=== PATIENT | female | born 1955 | race Caucasian/White ===

== ENCOUNTER 2024-02-18 14:20 | Outpatient (CLI) | payer OTHER | END 2024-02-18 20:26 | disposition home or self-care (01) | LOC: SCT 14:20 | PROVIDERS: ATTEND Orthopaedic Surgery | DX: M17.11 Unilateral primary osteoarthritis, right knee (principal) ==

== ENCOUNTER 2024-03-06 05:58 | Day surgery (SDC) | payer OTHER ==
[~2024-03-06] VITALS: Ht 162.6 cm; Wt 72.6 kg
[2024-03-06] MEDS ORDERED: ACETAMINOPHEN 500 MG TABLET ONE (06:15)
[2024-03-06] MEDS ORDERED: CEFAZOLIN SOD 2 GM in D5W 50 ML IV ONE (07:00)
[2024-03-06] MEDS ORDERED: VANCOMYCIN HCL 1,000 MG in NS 250 ML IV ONE (07:00)
[2024-03-06] MEDS: ACETAMINOPHEN 500 MG TABLET PO ONE (07:05)
[2024-03-06 07:14] VITALS: PULSE 89; RESP 16; TEMP 97.2; O2SAT 97
[2024-03-06] MEDS ORDERED: SEVOFLURANE 15 MIN GAS INH ONE (07:44)
[2024-03-06] MEDS ORDERED: ONDANSETRON HCL 4 MG/2 ML VIAL ONE (07:44)
[2024-03-06] MEDS ORDERED: DEXAMETHASONE SOD PHOSPHATE 10 MG/ML VIAL ONE (07:44)
[2024-03-06] MEDS ORDERED: EPINEPHrine HCL 1 MG/ML VIAL ONE (07:44)
[2024-03-06] MEDS ORDERED: TRANEXAMIC ACID 1,000 MG/10 ML VIAL ONE (07:44)
[2024-03-06] MEDS ORDERED: VANCOMYCIN HCL 1000 MG/VIAL IV ONE (07:44)
[2024-03-06] MEDS ORDERED: BUPIVACAINE /PF 0.25% 10 ML VIAL INJ ONE (07:44)
[2024-03-06] MEDS ORDERED: KETOROLAC TROMETHAMINE 30 MG VIAL ONE (07:44)
[2024-03-06] MEDS ORDERED: NS IRRIG SOLN 1000 ML IR ONE (07:44)
[2024-03-06] MEDS ORDERED: MIDAZOLAM HCL 2 MG/2 ML VIAL (VERSED) ONE (07:44)
[2024-03-06] MEDS ORDERED: LR 1,000 ML IV.SOLN IV ONE (07:44)
[2024-03-06] MEDS ORDERED: METOCLOPRAMIDE HCL 10 MG/2 ML VIAL IVP PRN ×2 (08:45→11:30)
[2024-03-06] MEDS ORDERED: LR 1,000 ML IV SCH (08:45)
[2024-03-06] MEDS ORDERED: ONDANSETRON HCL 4 MG/2 ML VIAL IVP PRN ×2 (08:45→11:45)
[2024-03-06] MEDS ORDERED: ACETAMINOPHEN I.V. 1000 MG 100 ML IV ONE (08:45)
[2024-03-06] MEDS ORDERED: HYDROmorphone 1 MG/ML INJ. CARTRIDGE IVP PRN ×3 (11:00)
[2024-03-06] MEDS ORDERED: traMADol HCL HCL 50 MG TABLET (ULTRAM) PO PRN (11:00)
[2024-03-06] MEDS ORDERED: LORATADINE 10 MG TABLET PO PRN (11:00)
[2024-03-06] MEDS ORDERED: oxyCODONE HCL 5 MG TABLET PO PRN ×2 (11:00)
[2024-03-06] MEDS ORDERED: DIPHENHYDRAMINE HCL 25 MG CAPSULE PO PRN (11:30)
[2024-03-06] MEDS ORDERED: LACTULOSE 20 GM/30 ML UDC PO PRN (11:30)
[2024-03-06] MEDS ORDERED: CLINDAMYCIN 900 MG in D5W 100 ML IV SCH (11:30)
[2024-03-06] MEDS ORDERED: BISACODYL 10 MG/SUPPOSITORY RC PRN (11:30)
[2024-03-06 11:49] VITALS: BP_SYST 137
[2024-03-06] MEDS ORDERED: HYDROmorphone 1 MG/ML INJ. CARTRIDGE ONE (12:08)
[2024-03-06] MEDS: HYDROmorphone 1 MG/ML INJ. CARTRIDGE IVP PRN (12:08)
[2024-03-06] MEDS: TAMSULOSIN HCL 0.4 MG CAP PO ONE (12:44)
[2024-03-06] MEDS ORDERED: TAMSULOSIN HCL 0.4 MG CAP ONE (12:46)
[2024-03-06] MEDS ORDERED: ACETAMINOPHEN 500 MG TABLET PO SCH (14:00)
[2024-03-06] MEDS: CLINDAMYCIN 900 mg/50mL D5W 50 ML IV SCH (15:10)
[2024-03-06] MEDS ORDERED: ASPIRIN 81 MG TAB.CHEW PO SCH (21:00)
[2024-03-06] MEDS ORDERED: SENNOSIDES/DOCUSATE SODIUM 1 TAB TABLET(SENOKOT-S) PO SCH (21:00)
[2024-03-07] MEDS ORDERED: TAMSULOSIN HCL 0.4 MG CAP PO SCH (09:00)
== END 2024-03-06 16:00 | disposition home or self-care (01) ==
LOC: SDS 05:58 → SMU 05:59 → SDS 16:00
PROVIDERS: ATTEND Orthopaedic Surgery
DX: M17.11 Unilateral primary osteoarthritis, right knee (principal); M25.761 Osteophyte, right knee; M25.561 Pain in right knee; I10 Essential (primary) hypertension; E78.5 Hyperlipidemia, unspecified; K21.9 Gastro-esophageal reflux disease without esophagitis; G47.00 Insomnia, unspecified; G89.18 Other acute postprocedural pain; M85.80 Other specified disorders of bone density and structure, unspecified site; Z88.8 Allergy status to other drugs, medicaments and biological substances; Z98.891 History of uterine scar from previous surgery; Z79.899 Other long term (current) drug therapy
CPT/HCPCS: 27447; 97162; 73560; 97530; 97110; 97116; 88305; 88311; 64447; J3490 ×3; J1100; J0171; J1885; J2250; J2405; J3370; J1171; J7120; J7050; A4649; C1776 ×4; C1713 ×2; J0131; S2900; J0690; J7060